=== PATIENT | female | born 1960 | race Caucasian/White ===

== ENCOUNTER 2016-11-18 15:30 | Emergency (ER) | payer MEDICAID ==
[~2016-11-18] VITALS: Ht 172.7 cm; Wt 73.0 kg
[~2016-11-18 15:30] MED LIST: ALPR0.25 PO; ASPI325T4 PO; ATOR20TA PO; CYCL5TAB PO; DICL50TA2 PO; GABA300C10 PO; MELO-184 PO; METH750T2 PO; METO25TA35 PO; NICO1PAT5 TD; OMEP-110 PO; PARO10TA3 PO; SERT25TA3 PO; TRAM50TA2 PO
[2016-11-18] MEDS ORDERED: ONDANSETRON 2MG/ML, 2ML IVPush ONE (16:00)
[2016-11-18] MEDS ORDERED: SODIUM CHLORIDE FLUSH 10ML SYR IVF ONE (16:00)
[2016-11-18] MEDS ORDERED: SODIUM CHLORIDE 0.9% 1,000ML IVBOLUS ONE (16:00)
[2016-11-18 16:11] LABS: HEMOGLOBIN 13.4 g/dL (11.7-16.4)
[2016-11-18 16:23] LABS: BLOOD UREA NITROGEN 20 mg/dL (7-18)
[2016-11-18] MEDS ORDERED: ONDANSETRON 2MG/ML, 2ML ONE (16:24)
[2016-11-18] MEDS ORDERED: MORPHINE SULFATE 4 MG/ML, 1ML ONE ×2 (16:24→17:06)
[2016-11-18 16:26] LABS: ASPARTATE AMINO TRANSFERASE 10 U/L (15-37)
[2016-11-18] MEDS: MORPHINE SULFATE 4 MG/ML, 1ML IVPush PRN ×2 (16:28→17:21)
[2016-11-18 17:21] VITALS: BP 135/78
== END 2016-11-18 18:44 | disposition home or self-care (01) ==
LOC: ED 18:40
DX: S80.02XA Contusion of left knee, initial encounter (principal); I10 Essential (primary) hypertension; K21.9 Gastro-esophageal reflux disease without esophagitis; M54.9 Dorsalgia, unspecified; G89.29 Other chronic pain; W01.0XXA Fall on same level from slipping, tripping and stumbling without subsequent striking against object, initial encounter; Y93.89 Activity, other specified; Y99.8 Other external cause status; Y92.89 Other specified places as the place of occurrence of the external cause
CPT/HCPCS: 36415; 71010; 74177; 80053; 83690; 85025; 85610; 96361; 96374; 96375; 96376; 99285; J2405; J7030

== ENCOUNTER 2016-11-22 11:49 | Emergency (ER) | payer MEDICAID ==
[~2016-11-22] VITALS: Ht 172.7 cm; Wt 72.8 kg
[2016-11-22 11:58] VITALS: BP 117/73
== END 2016-11-22 13:44 | disposition home or self-care (01) ==
LOC: ED 13:33
DX: S52.122A Displaced fracture of head of left radius, initial encounter for closed fracture (principal); F17.210 Nicotine dependence, cigarettes, uncomplicated; I10 Essential (primary) hypertension; Z90.710 Acquired absence of both cervix and uterus; Z90.89 Acquired absence of other organs; Z90.49 Acquired absence of other specified parts of digestive tract; W19.XXXA Unspecified fall, initial encounter; Y93.89 Activity, other specified; Y99.8 Other external cause status; Y92.009 Unspecified place in unspecified non-institutional (private) residence as the place of occurrence of the external cause
CPT/HCPCS: 29105

== ENCOUNTER 2017-03-09 08:17 | Emergency (ER) | payer MEDICAID ==
[~2017-03-09] VITALS: Ht 172.7 cm; Wt 68.0 kg
[2017-03-09 09:46] VITALS: BP 109/66
== END 2017-03-09 10:19 | disposition home or self-care (01) ==
LOC: ED 09:30
DX: J44.1 Chronic obstructive pulmonary disease with (acute) exacerbation (principal)
CPT/HCPCS: 71010; 93005; 99284; J7512

== ENCOUNTER 2018-12-16 17:18 | Emergency (ER) | payer MEDICAID ==
[~2018-12-16] VITALS: Ht 172.7 cm; Wt 81.6 kg
[~2018-12-16 17:18] MED LIST changes: +ASPI325T17 PO; -ASPI325T4 PO; -MELO-184 PO; +MELO15TA24 PO; +NICO-487 TD; -NICO1PAT5 TD
--- NOTE | 2018-12-16 17:28 | NUR ---
PT GIVEN URINE CUP FOR SAMPLE, PT TO RESTROOM
--- NOTE | 2018-12-16 17:37 | NUR ---
PT TO ED WITH MARY ANN BLOOD IN URINE AND RLQ ABD PAIN. PT PLACED ON MONITOR, AT BEDSIDE. CALL LIGHT WITHIN REACH
--- NOTE | 2018-12-16 17:58 | NUR ---
UA SENT ERP TO THE BS PILLOW PROVIDED
[2018-12-16] MEDS ORDERED: KETOROLAC 30 MG/1 ML ONE (18:20)
[2018-12-16] MEDS ORDERED: ONDANSETRON 2MG/ML, 2ML ONE (18:20)
[2018-12-16] MEDS ORDERED: MORPHINE SULFATE 4 MG/ML, 1ML ONE (18:21)
[2018-12-16 18:22] LABS: BASOPHILS # (AUTO) 0.07 x10^3/uL (0-0.1); BASOPHILS % (AUTO) 1 % (0-1); EOSINOPHILS % (AUTO) 2 % (1-7); LYMPHOCYTES # (AUTO) 2.75 x10^3/uL (1-3.4); LYMPHOCYTES % (AUTO) 20 % (22-44); MD NO; MEAN CORPUSCULAR HEMOGLOBIN 33.4 pg (27.0-34.8); MEAN CORPUSCULAR HGB CONC 34.2 g/dL (32.4-35.8); MEAN CORPUSCULAR VOLUME 97.6 fL (80-100); MEAN PLATELET VOLUME 8.8 fL (7.4-10.4); MONOCYTES # (AUTO) 1.14 x10^3/uL (0.2-0.8); MONOCYTES % (AUTO) 8 % (2-9); NEUTROPHILS # (AUTO) 9.51 x10^3/uL (1.8-6.8); NEUTROPHILS % (AUTO) 70 % (42-75); PLATELET COUNT 311 x10^3/uL (130-400); RED BLOOD COUNT 4.03 x10^6/uL (3.82-5.3); RED CELL DISTRIBUTION WIDTH 14.8 % (9.6-15.2)
[2018-12-16 18:25] LABS: CULTURE INDICATED? YES; MICROSCOPIC INDICATED
[2018-12-16] MEDS ORDERED: CEFTRIAXONE PMX 1GM/50ML 50 ML IV ONE (18:30)
[2018-12-16] MEDS ORDERED: SODIUM CHLORIDE 0.9% 1,000ML IVBOLUS ONE (18:30)
[2018-12-16] MEDS ORDERED: MORPHINE SULFATE 4 MG/ML, 1ML IVPush PRN (18:30)
[2018-12-16] MEDS ORDERED: KETOROLAC 30 MG/1 ML IVPush ONE (18:30)
[2018-12-16] MEDS ORDERED: ONDANSETRON 2MG/ML, 2ML IVPush ONE (18:30)
[2018-12-16 18:31] LABS: ALANINE AMINOTRANSFERASE 19 U/L (12-78); ALBUMIN 3.7 g/dL (3.4-5.0); ANION GAP 6 mmol/L (5-15); CALCIUM 8.8 mg/dL (8.5-10.1); CHLORIDE 113 mmol/L (98-107); CREATININE 0.85 mg/dL (0.55-1.02)
[2018-12-16 18:34] LABS: ALKALINE PHOSPHATASE 74 U/L (45-117); BILIRUBIN,TOTAL 0.3 mg/dL (0.2-1.0); TOTAL PROTEIN 6.7 g/dL (6.4-8.2)
[2018-12-16] MEDS ORDERED: CEFTRIAXONE PMX 1GM/50ML 50 ML ONE (18:47)
--- NOTE | 2018-12-16 18:52 | NUR ---
PT RESTING IN [facility], IVF AND ABX INFUSING
[2018-12-16 19:30] VITALS: BP 124/68
== END 2018-12-16 19:36 | disposition home or self-care (01) ==
LOC: ED 19:20
DX: N30.01 Acute cystitis with hematuria (principal); J44.9 Chronic obstructive pulmonary disease, unspecified; I10 Essential (primary) hypertension; I48.91 Unspecified atrial fibrillation; G89.29 Other chronic pain
CPT/HCPCS: 36415; 74176; 80053; 81001; 85025; 87077; 87086; 87186; 96365; 96375; 99284; J0696; J1885; J2405; J7030

== ENCOUNTER 2019-08-18 09:10 | Day surgery (SDC) | payer MEDICAID ==
[~2019-08-18] VITALS: Ht 172.7 cm; Wt 72.7 kg
[2019-08-18 10:02] LABS: BASOPHILS # (AUTO) 0.04 x10^3/uL (0-0.1); BASOPHILS % (AUTO) 0 % (0-1); EOSINOPHILS # (AUTO) 0.11 x10^3/uL (0-0.4); EOSINOPHILS % (AUTO) 1 % (1-7); LYMPHOCYTES # (AUTO) 2.52 x10^3/uL (1-3.4); LYMPHOCYTES % (AUTO) 17 % (22-44); MD NO; MEAN CORPUSCULAR HEMOGLOBIN 33.7 pg (27.0-34.8); MEAN CORPUSCULAR HGB CONC 33.4 g/dL (32.4-35.8); MEAN CORPUSCULAR VOLUME 100.8 fL (80-100); MEAN PLATELET VOLUME 8.6 fL (7.4-10.4); MONOCYTES # (AUTO) 1.14 x10^3/uL (0.2-0.8); MONOCYTES % (AUTO) 8 % (2-9); NEUTROPHILS # (AUTO) 10.68 x10^3/uL (1.8-6.8); NEUTROPHILS % (AUTO) 74 % (42-75); PLATELET COUNT 393 x10^3/uL (130-400); RED BLOOD COUNT 4.33 x10^6/uL (3.82-5.3); RED CELL DISTRIBUTION WIDTH 13.7 % (9.6-15.2)
[2019-08-18 10:14] LABS: ALANINE AMINOTRANSFERASE 25 U/L (12-78); ANION GAP 6 mmol/L (5-15); CALCIUM 8.9 mg/dL (8.5-10.1); CHLORIDE 110 mmol/L (98-107); CREATININE 1.13 mg/dL (0.55-1.02)
[2019-08-18 10:16] LABS: ALKALINE PHOSPHATASE 91 U/L (45-117); BILIRUBIN,TOTAL 0.7 mg/dL (0.2-1.0); TOTAL PROTEIN 7.4 g/dL (6.4-8.2)
[2019-08-18 10:42] LABS: MICROSCOPIC INDICATED
[2019-08-18] MEDS ORDERED: OMNIPAQUE 350 MG/ML, 100ML BOTTLE ONE (11:00)
[2019-08-18 11:01] LABS: CULTURE INDICATED? YES
--- NOTE | 2019-08-18 11:03 | NUR ---
[employer] RECORDS SPECIALIST: PT TO ROOM FROM LOBBY
--- NOTE | 2019-08-18 11:13 | NUR ---
PT HAS CO OF RIGHT LOWER GROIN PAIN THAT STARTED 36 HOURS AGO. PT SATES SHE HAS HX OF RECURRING UTI WHOM SHE IS SEEING A UROLOGIST FOR. PT JUST FINISHED ABX CIPRO FEW DAYS AGO AND 1 EPISODE OF DIARRHEA TODAY. PT NOT IN ANY DISTRESS. WAITING FOR FURTHER ORDERS.;
[2019-08-18] MEDS ORDERED: HYDROmorphone 2 MG/ML, 1ML ONE (11:29)
[2019-08-18] MEDS ORDERED: SODIUM CHLORIDE FLUSH 10ML SYR IVF ONE (11:30)
[2019-08-18] MEDS ORDERED: HYDROmorphone 2 MG/ML, 1ML IVPush PRN (11:30)
[2019-08-18] MEDS ORDERED: SODIUM CHLORIDE 0.9% 1,000ML IVBOLUS ONE (11:30)
[2019-08-18] MEDS ORDERED: ONDANSETRON 2MG/ML, 2ML ONE ×2 (11:30→20:49)
[2019-08-18] MEDS ORDERED: ONDANSETRON 2MG/ML, 2ML IVPush ONE (11:30)
--- NOTE | 2019-08-18 11:48 | NUR ---
PT IN CT
--- NOTE | 2019-08-18 12:02 | NUR ---
RECEIVED REPORT FROM LYNNE Kingston. ASSUMING CARE AT THIS TIME.
--- NOTE | 2019-08-18 12:03 | NUR ---
PT BACK FROM CT. PT AMBULATED TO RESTROOM WITH STEADY GAIT.
--- NOTE | 2019-08-18 12:21 | NUR ---
MD AT BEDSIDE TO UPDATE PT ON POC.
--- NOTE | 2019-08-18 13:01 | NUR ---
PT AMBULATED TO RESTROOM WITH STEADY GAIT. NADN. SPOUSE AT BEDSIDE. AWAITING SURG CONSULT.
[2019-08-18] MEDS ORDERED: DULO30CA2 PO (13:08)
[2019-08-18] MEDS ORDERED: GABA-827 PO (13:08)
[2019-08-18] MEDS ORDERED: POTASSIUM CHLORIDE 20 MEQ in D5%-0.45% NACL 1,000 ML IV ONE (13:08)
[2019-08-18] MEDS ORDERED: HYDROmorphone 1 MG/ML, 1ML INJ ONE (13:10)
[2019-08-18] MEDS ORDERED: SODIUM CHLORIDE FLUSH 10ML SYR IVF PRN (13:30)
[2019-08-18] MEDS ORDERED: HYDROmorphone 1 MG/ML, 1ML INJ IVPush PRN ×2 (13:30→21:00)
[2019-08-18] MEDS ORDERED: ONDANSETRON 2MG/ML, 2ML IVPush PRN ×2 (13:30→21:30)
--- NOTE | 2019-08-18 14:00 | NUR ---
REPORT GIVEN TO KIAH BATISTA.
[2019-08-18] MEDS ORDERED: IBUP200T49 PO (14:30)
[2019-08-18] MEDS ORDERED: BUPIVACAINE/PF 0.5% ONE ×2 (15:13→19:12)
[2019-08-18] MEDS ORDERED: EPINEPHRINE 1 MG/ML, 1ML ONE ×2 (15:13→19:12)
[2019-08-18 15:32] VITALS: BP 138/86
[2019-08-18 19:01] VITALS: BP 132/82
[2019-08-18] MEDS ORDERED: FENTANYL PF 100 MCG/2ML ONE ×3 (20:39→21:40)
[2019-08-18] MEDS ORDERED: MIDAZOLAM 1 MG/ML, 2ML ONE (20:39)
[2019-08-18] MEDS ORDERED: SUCCINYLCHOLINE 20 MG/ML, 10ML ONE (20:49)
[2019-08-18] MEDS ORDERED: PROPOFOL 10 MG/ML, 20ML ONE (20:49)
[2019-08-18] MEDS ORDERED: CEFAZOLIN 1,000 MG ONE (20:49)
[2019-08-18] MEDS ORDERED: DEXAMETHASONE 4 MG/ML, 1ML ONE (20:49)
[2019-08-18] MEDS ORDERED: ROCURONIUM 10MG/ML,5ML ONE (20:49)
[2019-08-18] MEDS ORDERED: KETOROLAC 30 MG/1 ML ONE (20:50)
[2019-08-18] MEDS ORDERED: EPHEDRINE 50 MG/ML, 1ML IVPush PRN (21:00)
[2019-08-18] MEDS ORDERED: ONDANSETRON 2MG/ML, 2ML IV PRN (21:00)
[2019-08-18] MEDS ORDERED: OXYcodone 5 MG/5 ML ORAL.SOL UDC PO PRN (21:00)
[2019-08-18] MEDS ORDERED: FENTANYL PF 100 MCG/2ML IV PRN (21:00)
[2019-08-18] MEDS ORDERED: ACETAMINOPHEN 325 MG TABLET PO PRN (21:00)
[2019-08-18] MEDS ORDERED: hydrALAzine 20 MG/ML, 1ML IV PRN (21:00)
[2019-08-18] MEDS ORDERED: PROMETHAZINE 25 MG/ML, 1ML IV PRN (21:00)
[2019-08-18] MEDS ORDERED: LABETALOL 5MG/ML, 20ML IV PRN (21:00)
[2019-08-18] MEDS ORDERED: MEPERIDINE/PF 25MG/ML,1ML IVPush PRN (21:00)
[2019-08-18] MEDS ORDERED: SUGAMMADEX 200 MG/2 ML IVPush ONE (21:02)
[2019-08-18] MEDS ORDERED: KETOROLAC 30 MG/1 ML IV PRN ×2 (21:30→23:00)
[2019-08-18] MEDS ORDERED: DIPHENHYDRAMINE 25 MG CAPSULE PO PRN (21:30)
[2019-08-18] MEDS ORDERED: ACETAMINOPHEN 650 MG/20.3 ML UDC PO PRN (21:30)
[2019-08-18] MEDS ORDERED: DIPHENHYDRAMINE 50 MG/ML, 1ML IV PRN (21:30)
[2019-08-18] MEDS ORDERED: OXYcodone 5 MG/5 ML ORAL.SOL UDC ONE (21:41)
[2019-08-18] MEDS ORDERED: D5%-0.45% NACL 1,000 ML IV SCH (22:00)
[2019-08-18 22:16] VITALS: BP 137/82
[2019-08-19 00:04] VITALS: BP 110/69
[2019-08-19] MEDS: HYDROcodone/APAP 5/325 TABLET PO PRN ×2 (02:54→03:27)
[2019-08-19 04:02] VITALS: BP 109/72
[2019-08-19 05:29] VITALS: BP 102/69
[2019-08-19 05:42] LABS: MEAN CORPUSCULAR HEMOGLOBIN 33.3 pg (27.0-34.8); MEAN CORPUSCULAR HGB CONC 33.3 g/dL (32.4-35.8); MEAN CORPUSCULAR VOLUME 99.8 fL (80-100); MEAN PLATELET VOLUME 8.8 fL (7.4-10.4); PLATELET COUNT 284 x10^3/uL (130-400); RED BLOOD COUNT 3.83 x10^6/uL (3.82-5.3); RED CELL DISTRIBUTION WIDTH 13.8 % (9.6-15.2)
[2019-08-19] MEDS ORDERED: METOPROLOL TARTRATE 25 MG TABLET PO SCH (06:00)
[2019-08-19 06:20] LABS: BASOPHILS % (AUTO) 0 % (0-1); EOSINOPHILS % (AUTO) 0 % (1-7); LYMPHOCYTES # (AUTO) 0.48 x10^3/uL (1-3.4); LYMPHOCYTES % (AUTO) 5 % (22-44); MD SCAN; MONOCYTES # (AUTO) 0.07 x10^3/uL (0.2-0.8); MONOCYTES % (AUTO) 1 % (2-9); NEUTROPHILS # (AUTO) 8.84 x10^3/uL (1.8-6.8); NEUTROPHILS % (AUTO) 94 % (42-75)
[2019-08-19 06:39] VITALS: BP 103/67
[2019-08-19] MEDS ORDERED: OMEPRAZOLE 20 MG CAPSULE.DR PO SCH (09:00)
[2019-08-19] MEDS ORDERED: IBUPROFEN 800 MG TABLET PO SCH (09:00)
[2019-08-19] MEDS ORDERED: GABAPENTIN 400 MG CAPSULE PO SCH (09:00)
[2019-08-19] MEDS ORDERED: HYDROcodone/APAP 10/325 MG TABLET PO PRN (09:00)
[2019-08-19] MEDS ORDERED: METHOCARBAMOL 750 MG TABLET PO SCH (09:00)
[2019-08-19] MEDS ORDERED: DULOXETINE 30 MG CAPSULE.DR PO SCH (09:00)
[2019-08-19] MEDS ORDERED: ENOXAPARIN 40 MG/0.4 ML SQ SCH (09:00)
[2019-08-19] MEDS ORDERED: HYDR-3245 PO (10:04)
[2019-08-19] MEDS ORDERED: ONDA4TAB7 PO (10:05)
[2019-08-19] MEDS ORDERED: OMNIPAQUE 350 MG/ML, 100ML BOTTLE ONE (15:00)
== END 2019-08-19 11:56 | disposition home or self-care (01) ==
LOC: ED 12:21 → EDIP 13:08 → UNDOADMIN 13:08 → 4NE 13:08 → ED 13:08 → OUT 13:08 → EDIP 13:09 → 4NE 13:09 → ED 14:12 → 4NE 14:12 → EDSTATUS 14:25 → DCLOUNGE 08-19 11:49 → 4NE 08-19 11:49 → OUT 08-19 11:56 → UNDODISIN 08-19 11:56
PROVIDERS: ATTEND Emergency Medicine
DX: K35.80 Unspecified acute appendicitis (principal); K66.0 Peritoneal adhesions (postprocedural) (postinfection); Z90.722 Acquired absence of ovaries, bilateral; Z90.49 Acquired absence of other specified parts of digestive tract; Z85.118 Personal history of other malignant neoplasm of bronchus and lung; Z90.710 Acquired absence of both cervix and uterus; Z98.890 Other specified postprocedural states
CPT/HCPCS: 36415; 44970; 74177; 80053; 81001; 85025; 87086; 88304; 93005; 99285; J0171; J0330; J0690; J1100; J1170; J1650; J1885; J2250; J2405; J2704; J3010; J3480; J7030; Q9967; G0378

== ENCOUNTER → 2020-02-27 | Outpatient (CLI) | payer MEDICAID ==
[~2020-02-27] MED LIST changes: +DULO30CA2 PO; +GABA-827 PO; +HYDR-3245 PO; +IBUP200T49 PO; +ONDA4TAB7 PO
== END | disposition home or self-care (01) ==
LOC: CFH 08:43
PROVIDERS: ATTEND Family Medicine
DX: M41.86 Other forms of scoliosis, lumbar region (principal); M51.36 Other intervertebral disc degeneration, lumbar region
CPT/HCPCS: 72110

== ENCOUNTER 2020-06-06 20:03 | Emergency (ER) | payer MEDICAID ==
[~2020-06-06] VITALS: Ht 170.2 cm; Wt 74.0 kg
--- NOTE | 2020-06-06 20:13 | NUR ---
PLEASANT 60 F BIB [facility] TONIGHT FROM HOME AFTER PATIENT FINISHED DINNER AND EXPERIENCED STRONG STERNAL CHEST PRESSURE AND DIZINESS. PT FOUND TO BE HYPOTENSIVE WITH HOME BP CUFF AT 59/45. PER EMS, BP WAS 60/41. AFTER 500 ML NS, PT BP IMPROVED TO 89/50. UPON ARRIVAL TO [facility] ED, PT VSS. PT ATTACHED TO ALL VS MONITORS AND CARDIAC MONITORS. EKG PERFORMED AT AND HANDED OFF TO DR. CARDENAS. PT STATES "I FEEL BETTER" UPON ARRIVAL TO [facility] ED. PER EMS, FSBS 123. PT GCS 15 AND AAO X 4. PT MEDICAL HISTORY AND PHYSICAL ASSESSMENT OBTAINED AT THIS TIME. PT EDUCATED ON ER PROCESS AND POC AND HAS CALL LIGHT WITHIN REACH. ALL QUESTIONS ANSWERED.
--- NOTE | 2020-06-06 20:22 | NUR ---
PT MEDICATED PER OCT. PT PROVIDED ICE PACK FOR LBP PER PT REQUEST.
--- NOTE | 2020-06-06 20:32 | NUR ---
Pt spouse taken back to room from lobby at this time. pt vss and updated in emr.
[2020-06-06 20:49] LABS: BASOPHILS % (AUTO) 1 % (0-1); EOSINOPHILS % (AUTO) 1 % (1-7); LYMPHOCYTES % (AUTO) 38 % (22-44); MEAN CORPUSCULAR HEMOGLOBIN 32.6 pg (27.0-34.8); MEAN CORPUSCULAR HGB CONC 33.2 g/dL (32.4-35.8); MEAN PLATELET VOLUME 8.4 fL (7.4-10.4); MONOCYTES % (AUTO) 9 % (2-9); NEUTROPHILS % (AUTO) 51 % (42-75); PLATELET COUNT 275 x10^3/uL (130-400); RED BLOOD COUNT 3.86 x10^6/uL (3.82-5.3); RED CELL DISTRIBUTION WIDTH 13.3 % (9.6-15.2)
[2020-06-06 20:53] LABS: MD NO
[2020-06-06 20:56] LABS: ANION GAP 5 mmol/L (5-15); CALCIUM 8.1 mg/dL (8.5-10.1); CHLORIDE 115 mmol/L (98-107); CREATININE 0.96 mg/dL (0.55-1.02)
[2020-06-06 20:59] LABS: TROPONIN I < 0.015 ng/mL (0.000-0.045)
--- NOTE | 2020-06-06 21:34 | NUR ---
pt tolerating fluids well at this time. pt vss and updated in emr.
--- NOTE | 2020-06-06 21:58 | NUR ---
PT AMBULATES WITH STEADY GAIT AND DENIES RETURN OF DIZINESS OR POTENTIAL FOR SYNCOPE. PT EDUCATED ON NEED FOR FOLLOW UP WITH PCP. PT VSS PRIOR TO D/C. PT SPOUSE AT BS FOR RIDE OF PT HOME. PIV X 2 D/C WITH TIP INTACT. PT QUESTIONS ANSWERED. PT DENIES ANY OTHER NEEDS PERTAINING TO THIS VISIT AND AMBULATES TO REGISTRATION DESK WITH STEADY GAIT FOR D/C HOME.
[2020-06-06 22:01] VITALS: BP 111/77
== END 2020-06-06 22:03 | disposition home or self-care (01) ==
LOC: ED 21:30
DX: R55 Syncope and collapse (principal); R42 Dizziness and giddiness; R07.89 Other chest pain; R94.31 Abnormal electrocardiogram [ECG] [EKG]; I10 Essential (primary) hypertension; J44.9 Chronic obstructive pulmonary disease, unspecified; K21.9 Gastro-esophageal reflux disease without esophagitis; Z90.89 Acquired absence of other organs; Z90.49 Acquired absence of other specified parts of digestive tract; Z90.710 Acquired absence of both cervix and uterus; Z87.891 Personal history of nicotine dependence
CPT/HCPCS: 36415; 80048; 84484; 85025; 93005; 99284

== ENCOUNTER 2021-01-07 11:04 | Inpatient (IN) | payer MEDICAID ==
[~2021-01-07] VITALS: Ht 172.7 cm; Wt 76.4 kg
[~2021-01-07 11:04] MED LIST changes: -HYDR-3245 PO; +HYDR1TAB53 PO; +METH-640 PO; -METH750T2 PO; -NICO-487 TD; +NICO-587 TD; +SERT-331 PO; -SERT25TA3 PO
[2021-01-07 12:00] LABS: BASOPHILS % (AUTO) 1 % (0-1); EOSINOPHILS % (AUTO) 3 % (1-7); LYMPHOCYTES % (AUTO) 43 % (22-44); MEAN CORPUSCULAR HEMOGLOBIN 33.1 pg (27.0-34.8); MEAN CORPUSCULAR HGB CONC 34.1 g/dL (32.4-35.8); MEAN PLATELET VOLUME 8.3 fL (7.4-10.4); MONOCYTES % (AUTO) 10 % (2-9); NEUTROPHILS % (AUTO) 43 % (42-75); PLATELET COUNT 316 x10^3/uL (130-400); RED BLOOD COUNT 4.28 x10^6/uL (3.82-5.3)
[2021-01-07 12:02] LABS: MD NO
[2021-01-07 12:11] LABS: ALANINE AMINOTRANSFERASE 21 U/L (12-78); ALBUMIN 4.4 g/dL (3.4-5.0); ANION GAP 5 mmol/L (5-15); CALCIUM 9.2 mg/dL (8.5-10.1); CHLORIDE 107 mmol/L (98-107); CREATININE 0.82 mg/dL (0.55-1.02)
[2021-01-07 12:13] LABS: ALKALINE PHOSPHATASE 95 U/L (45-117); BILIRUBIN,TOTAL 0.5 mg/dL (0.2-1.0); TOTAL PROTEIN 7.8 g/dL (6.4-8.2)
--- NOTE | 2021-01-07 14:19 | NUR ---
PT PRESENTS TO ED WITH RUQ ABD PAIN, WHICH SHE HAS HAD OFF AND ON SINCE LUNG SURGERY X2 YEARS AGO. THIS ACUTE EPISODE ISN'T GOING AWAY LIKE IT USUALLY DOES. PT ALSO REPORTS HX OF CHRONIC BACK PAIN WITH MULTIPLE CERVIAL AND LOW BACK SURGERIES. PT DENIES N/V. VERY TENDER ON PALPATION. INCREASED PAIN WITH MOVEMENT. SIDE RAIL UP, CALL LIGHT IN REACH.
--- NOTE | 2021-01-07 14:54 | NUR ---
pt up to bedside commode independently for ua collection. UA sent to lab. Awaiting results. Pt given blankets. HOB to level of comfort. NAD noted at this time. Side rail up, call light in reach.
[2021-01-07 15:03] LABS: MICROSCOPIC NOT IND
[2021-01-07] MEDS ORDERED: HYDROmorphone 1 MG/ML, 1ML INJ ONE (15:47)
[2021-01-07] MEDS ORDERED: ONDANSETRON 2MG/ML, 2ML ONE (15:47)
[2021-01-07] MEDS ORDERED: SODIUM CHLORIDE FLUSH 10ML SYR IVF ONE (16:00)
[2021-01-07] MEDS ORDERED: HYDROmorphone 1 MG/ML, 1ML INJ IV ONE (16:00)
[2021-01-07] MEDS ORDERED: ONDANSETRON 2MG/ML, 2ML IVPush ONE (16:00)
--- NOTE | 2021-01-07 16:03 | NUR ---
PT LAYING ON SIDE IN BED, PT REPORTS RELIEF FROM PAIN FOLLOWING IV MEDICATION.
--- NOTE | 2021-01-07 16:40 | NUR ---
PT MOVED TO ROOM AWAY FROM LIGHTS AND NOISE AND WITH TELEVISION FOR PT COMFORT. NAD NOTED AT THIS TIME. HOB TO LEVEL OF COMFORT. COMMODE AT BEDSIDE, WHICH PT HAS USED INDEPENDENTLY. AWAITING CT.
--- NOTE | 2021-01-07 17:14 | NUR ---
PT TO IMAGING
[2021-01-07] MEDS ORDERED: OMNIPAQUE 350 MG/ML, 100ML BOTTLE ONE (17:26)
--- NOTE | 2021-01-07 17:52 | NUR ---
PT CHART UP FOR RECHECK. PT LAYING BACK IN BED WATCHING TELEVISION, NAD NOTED AT THIS TIME. PT REPORTS PAIN COMING UP "TO A 4 OR A 5" OUT OF 10. SIDE RAILS UP, CALL LIGHT IN REACH.
--- NOTE | 2021-01-07 18:20 | NUR ---
ABX HELD AT THIS TIME SURGERY IS IN QUESTION.
[2021-01-07] MEDS ORDERED: CEFOTETAN PMX 1GM/50ML 50 ML IVPB ONE (18:30)
--- NOTE | 2021-01-07 19:12 | NUR ---
REPORT TO LYNNE OLIVO.
[2021-01-07] MEDS ORDERED: KETAMINE 10 MG/ML, 20ML IV ONE (19:39)
[2021-01-07] MEDS ORDERED: KETAMINE 10 MG/ML, 20ML ONE (19:41)
--- NOTE | 2021-01-07 19:58 | NUR ---
ANTIBIOTIC STARTED PER OCT. ERP STATES START THE ANTIBIOTIC. MEDICATED FOR PAIN.
--- NOTE | 2021-01-07 20:21 | NUR ---
PATIENT USING BEDSIDE COMMODE AT THIS TIME. AMBULATE WITH STEADY GAIT.
[2021-01-07 21:35] VITALS: BP 137/86
--- NOTE | 2021-01-07 21:41 | NUR ---
REPORT GIVEN TO LYNNE YAO
[2021-01-07] MEDS ORDERED: HYDR-3241 PO (21:59)
[2021-01-07] MEDS ORDERED: ONDANSETRON 2MG/ML, 2ML IVPush PRN (23:00)
[2021-01-07] MEDS ORDERED: ONDANSETRON ODT 4 MG PO PRN (23:00)
[2021-01-07] MEDS ORDERED: PROMETHAZINE 25 MG/ML, 1ML IM PRN (23:00)
[2021-01-07] MEDS ORDERED: ACETAMINOPHEN 325 MG TABLET PO PRN (23:00)
[2021-01-07] MEDS ORDERED: morphine SULFATE 10 MG/ML, 1ML IVPush PRN (23:00)
[2021-01-07] MEDS ORDERED: DOCUSATE 100 MG CAPSULE PO PRN (23:00)
[2021-01-07] MEDS ORDERED: OXYcodone IR 5MG TABLET PO PRN (23:00)
[2021-01-07] MEDS ORDERED: hydrALAzine 20 MG/ML, 1ML IVPush PRN (23:00)
[2021-01-07] MEDS: SODIUM CHLORIDE 0.9% 1,000 ML IV SCH (23:13)
[2021-01-07] MEDS: HEPARIN 5,000 UNITS/ML, 1ML SQ SCH (23:13)
[2021-01-07] MEDS: METRONIDAZOLE PMX 500MG/100ML 100 ML IV SCH (23:13)
[2021-01-07] MEDS: METHOCARBAMOL 750 MG TABLET PO SCH (23:17)
[2021-01-07] MEDS: GABAPENTIN 400 MG CAPSULE PO SCH (23:18)
[2021-01-08 00:09] VITALS: BP 135/80
[2021-01-08] MEDS ORDERED: CEFOTETAN PMX 2GM/50ML 50 ML IV SCH (06:00)
[2021-01-08 06:14] LABS: BASOPHILS % (AUTO) 1 % (0-1); EOSINOPHILS % (AUTO) 4 % (1-7); LYMPHOCYTES % (AUTO) 54 % (22-44); MD NO; MEAN CORPUSCULAR HEMOGLOBIN 32.6 pg (27.0-34.8); MEAN PLATELET VOLUME 8.5 fL (7.4-10.4); MONOCYTES % (AUTO) 8 % (2-9); NEUTROPHILS % (AUTO) 33 % (42-75); PLATELET COUNT 248 x10^3/uL (130-400); RED CELL DISTRIBUTION WIDTH 14.1 % (9.6-15.2)
[2021-01-08 06:20] LABS: ALANINE AMINOTRANSFERASE 20 U/L (12-78); ALBUMIN 3.5 g/dL (3.4-5.0); CALCIUM 8.4 mg/dL (8.5-10.1); CREATININE 0.64 mg/dL (0.55-1.02)
[2021-01-08 06:27] LABS: ANION GAP 5 mmol/L (5-15); CHLORIDE 112 mmol/L (98-107)
[2021-01-08 06:31] LABS: ALKALINE PHOSPHATASE 85 U/L (45-117); BILIRUBIN,TOTAL 0.6 mg/dL (0.2-1.0); TOTAL PROTEIN 6.3 g/dL (6.4-8.2)
[2021-01-08] MEDS: METRONIDAZOLE PMX 500MG/100ML 100 ML IV SCH ×2 (06:36→15:05)
[2021-01-08] MEDS: HEPARIN 5,000 UNITS/ML, 1ML SQ SCH ×2 (06:36→14:23)
[2021-01-08] MEDS: SODIUM CHLORIDE 0.9% 1,000 ML IV SCH (06:36)
[2021-01-08 07:01] VITALS: BP 114/74
[2021-01-08] MEDS ORDERED: LORazepam 1MG TABLET PO PRN ×2 (08:00)
[2021-01-08] MEDS ORDERED: LORazepam 2 MG/ML, 1ML IV PRN ×3 (08:00)
[2021-01-08] MEDS ORDERED: ACETAMINOPHEN 325 MG TABLET PO PRN (08:00)
[2021-01-08] MEDS ORDERED: LORazepam 0.5MG TABLET PO PRN (08:00)
[2021-01-08] MEDS ORDERED: CIPROFLOXACIN/PMX 400MG/200ML 200 ML IV SCH (08:00)
[2021-01-08] MEDS ORDERED: OXYcodone IR 5MG TABLET PO PRN (08:00)
[2021-01-08] MEDS: METHOCARBAMOL 750 MG TABLET PO SCH ×2 (08:04→15:09)
[2021-01-08] MEDS: GABAPENTIN 400 MG CAPSULE PO SCH ×2 (08:04→15:09)
[2021-01-08] MEDS ORDERED: METOPROLOL TARTRATE 50 MG TAB PO SCH (09:00)
[2021-01-08 12:48] VITALS: BP 112/73
[2021-01-08] MEDS ORDERED: METR500T PO (14:04)
[2021-01-08] MEDS ORDERED: CIPR500T87 PO (14:04)
== END 2021-01-08 16:24 | disposition home or self-care (01) | DRG 394 ==
LOC: ED 14:38 → EDIP 21:32 → 3N 21:33 → DCLOUNGE 01-08 16:19
PROVIDERS: ADMIT Surgery; ATTEND Surgery
DX: K37 Unspecified appendicitis (principal); K57.92 Diverticulitis of intestine, part unspecified, without perforation or abscess without bleeding; G89.29 Other chronic pain; F10.10 Alcohol abuse, uncomplicated; I10 Essential (primary) hypertension; Z85.118 Personal history of other malignant neoplasm of bronchus and lung; Z87.891 Personal history of nicotine dependence; Z90.49 Acquired absence of other specified parts of digestive tract; Z90.710 Acquired absence of both cervix and uterus
CPT/HCPCS: 36415; 71045; 74177; 80053; 81003; 83036; 83690; 83735; 84100; 84443; 85025; 93005; 96374; 96375; 99285; G0378; J0744; J1170; J1644; J2405; Q9967; J7030

== ENCOUNTER 2021-04-13 13:18 | Emergency (ER) | payer MEDICAID ==
[~2021-04-13] VITALS: Ht 172.7 cm; Wt 73.9 kg
[~2021-04-13 13:18] MED LIST changes: +CIPR500T87 PO; +HYDR-3241 PO; +METR500T PO
[2021-04-13 14:10] VITALS: BP 128/82
[2021-04-13] MEDS ORDERED: KETOROLAC 30 MG/1 ML IM ONE (14:30)
[2021-04-13] MEDS ORDERED: DIAZEPAM 5 MG TABLET PO ONE (14:30)
[2021-04-13] MEDS ORDERED: HYDROmorphone 2 MG/ML, 1ML ONE (15:28)
[2021-04-13] MEDS ORDERED: HYDROmorphone 1 MG/ML, 1ML INJ IM ONE (15:30)
== END 2021-04-13 16:48 | disposition home or self-care (01) ==
LOC: ED 16:19
DX: S39.012A Strain of muscle, fascia and tendon of lower back, initial encounter (principal); M54.41 Lumbago with sciatica, right side; I10 Essential (primary) hypertension; K21.9 Gastro-esophageal reflux disease without esophagitis; J44.9 Chronic obstructive pulmonary disease, unspecified; M19.90 Unspecified osteoarthritis, unspecified site; I95.9 Hypotension, unspecified; X58.XXXA Exposure to other specified factors, initial encounter; Y93.89 Activity, other specified; Y92.89 Other specified places as the place of occurrence of the external cause; Y99.8 Other external cause status
CPT/HCPCS: 96372; 99283; J1170; J7512